=== PATIENT | male | born 1935 | race Caucasian/White ===

== ENCOUNTER 2017-01-05 06:00 | Observation (INO) | payer BC ==
--- NOTE | ~2017-01-05 | DS ---
Discharge Summary [facility] [address] [place]. [address] NAME: VLADIMIR ALANIZ : 35 STATUS : DIS Syeda PAT#: [id number] AGE: 81 ADM/REG DATE : 01/05/17 MR#: [id number] REPORT SERV DATE: 01/07/17 DICTATED BY: SALVADOR FREEMAN DATE: 01/06/17 REPORT STATUS : Draft TRANSCRIBED BY: MODL DATE: 01/06/17 ADMISSION DATE: 01/05/2017 DISCHARGE DATE: 01/06/2017 DISCHARGE DIAGNOSES: Include, 1. Iph-KH-fkuyvfdos myocardial infarction, chest pain. 2. Chronic diastolic heart failure with most recent ejection fraction of 45%. 3. Chronic atrial fibrillation. 4. Chronic kidney disease, stage 3. Most recent creatinine 1.39. 5. Hypothyroidism that is new, most recent TSH 15.400. 6. Hyperlipidemia. 7. History of coronary artery disease and coronary artery bypass grafting. DISCHARGE MEDICATIONS: Lipitor 20 mg at bedtime, amiodarone 100 mg daily, Plavix 75 mg daily, Xarelto 15 mg at bedtime, torsemide 10 mg daily, Lopressor 25 mg twice a day. HISTORY OF PRESENT ILLNESS: A very pleasant 81-year-old white male who presented originally to [facility] with complaints of chest pain. Please see initial H and P of Dr. Haney. The patient was admitted to the hospitalist service for further evaluation and treatment with consultations placed to Cardiology. The patient was subsequently transferred to [facility], underwent a heart catheterization that was performed on 01/05/2017. PROCEDURES AND IMAGING DURING THIS OVERALL ADMISSION: Include a CTA of the chest that showed no acute cardiopulmonary disease, some trace bilateral pleural effusions. No pneumonia and no evidence of pulmonary embolus, and an echocardiogram showing normal LV size and mild decrease in systolic function with ejection fraction of 45%. Mild global hypokinesis. Mild left atrial enlargement. The above stated cardiac catheterization showing obstructive [place] three-vessel coronary artery disease with recommendation for continued medical management at this time. HOSPITAL COURSE: I began seeing the patient on 01/05/2017 status post his heart catheterization where patient was feeling much better with no new complaints. Discussed with the patient the findings of his above described testing, and he was monitored overnight in the cardiac short-stay unit in review of his total lab work during this hospitalization. He did have an elevated TSH and Synthroid was initiated with instructions to recheck his TSH in four to six weeks at his primary care office. He was felt safe for discharge home on 01/06/2017 with the above described medication regimen, and he will also be following up outpatient with a insole reinforcer, Dr. Wang on 01/11/[address] Rojas on 02/01/2017. The patient was in agreement with this plan going forward and so was discharged home. Please note that greater than 30 minutes were spent on this discharge for medication teaching, followup planning, and further disposition. SASHA/HINA Discharge Summary [address] [place]. [id number] NAME: VLADIMIR ALANIZ : 35 STATUS : DIS Syeda PAT#: [id number] AGE: 81 ADM/REG DATE : 01/05/17 MR#: [id number] REPORT SERV DATE: 01/07/17 DICTATED BY: SALVADOR FREEMAN DATE: 01/06/17 REPORT STATUS : Draft TRANSCRIBED BY: HINA DATE: 01/06/17 Salvador Freeman NP / [id number] CC: Ortega Butler M.D.
[~2017-01-05 06:00] MED LIST: ASABAYER PO; C5 PO; CARDCD240 PO; CORDARONE PO; DCN100 PO; DEMA10T PO; DIOVAN320 MG PO; FLOMAX4 PO; LAN125 PO; LEVAQUIN750 MG PO; LIPITOR20 PO; OMNICEF300 PO; P10 PO; PACERONE100 MG PO; PLAVIX PO; PRILO PO; PRIN5 PO; PROAIR HFA INH; SPIRO25 PO; TOPXL100 PO; XARELTO15 MG PO; XARELTO20 MG PO
[2017-01-06 04:20] LABS: BASOPHILS 0.3 %; BASOPHILS ABSOLUTE 0.03 10/3/uL (0.0-0.16); EOSINOPHILS 2.7 %; EOSINOPHILS ABSOLUTE 0.24 10/3/uL (0.0-0.53); HEMATOCRIT 39.2 % (40.0-51.0); HEMOGLOBIN 12.8 g/dL (13.6-17.8); IMMATURE GRANULOCYTES 0.3 %; IMMATURE GRANULOCYTES ABSOLUTE 0.03 10/3/uL (0.0-0.11); LYMPHOCYTES 23.8 %; MANUAL DIFF NO %; MEAN CORPUS HGB CONC 32.7 g/dL (32.0-36.0); MEAN CORPUSCULAR HEMOGLOB 27.6 pg (26.0-34.0); MEAN CORPUSCULAR VOLUME 84.7 fL (80-100); MEAN PLATELET VOLUME 9.2 fL (9.2-13.0); MONOCYTES 9.3 %; MONOCYTES ABSOLUTE 0.82 10/3/uL (0.21-1.20); NEUTROPHILS 63.6 %; PLATELET COUNT 289 10/3/uL (150-400); RBC DISTRIBUTION WIDTH 15.3 % (12.0-16.0); RED CELL COUNT 4.63 10/6/uL (4.7-6.1); WHITE BLOOD CELLS 8.8 10/3/uL (4.5-10.5)
[2017-01-06 04:36] LABS: BUN (BLOOD UREA NITROGEN) 22 MG/DL (6-23); CALCIUM, SERUM 8.3 MG/DL (8.5-10.4); CHLORIDE, SERUM 113 MMOL/L (96-112); CO2 (CARBON DIOXIDE) 21 MMOL/L (24-34); CREATININE 1.39 MG/DL (0.70-1.30); GFR AFRICAN AMERICAN 55 ML/MIN (>=60); GFR NON AFRICAN AMERICAN 47 ML/MIN (>=60); GLUCOSE, SERUM 98 MG/DL (60-99); POTASSIUM, SERUM 4.3 MMOL/L (3.5-5.3); SODIUM, SERUM 145 MMOL/L (135-148)
[2017-01-06] MEDS ORDERED: LOP25 PO (09:14)
[2017-01-06] MEDS ORDERED: SYN.05 PO (09:22)
== END 2017-01-06 11:05 | disposition home or self-care (01) ==
LOC: CORLMH 06:00 → SSU1 06:29
PROVIDERS: Internal Medicine Cardiovascular Disease
PROC: 4A023N7 Measurement of Cardiac Sampling and Pressure, Left Heart, Percutaneous Approach (ICD-10-PCS; principal; 2017-01-05)
PROC: B2131ZZ Fluoroscopy of Multiple Coronary Artery Bypass Grafts using Low Osmolar Contrast (ICD-10-PCS; 2017-01-05)
DX: I25.119 Atherosclerotic heart disease of native coronary artery with unspecified angina pectoris (principal); I10 Essential (primary) hypertension; I21.4 Non-ST elevation (NSTEMI) myocardial infarction; I48.2 Chronic atrial fibrillation; I50.32 Chronic diastolic (congestive) heart failure; I13.0 Hypertensive heart and chronic kidney disease with heart failure and stage 1 through stage 4 chronic kidney disease, or unspecified chronic kidney disease; N18.3 Chronic kidney disease, stage 3 (moderate); E03.9 Hypothyroidism, unspecified; E78.5 Hyperlipidemia, unspecified; Z95.1 Presence of aortocoronary bypass graft; Z87.891 Personal history of nicotine dependence; Z79.02 Long term (current) use of antithrombotics/antiplatelets; Z79.82 Long term (current) use of aspirin; Z79.899 Other long term (current) drug therapy
CPT/HCPCS: 80048; 82962; 85025; 85347; 93459; 99152; A9270-GY; C1769; G0378; J2250; J3010; Q9967